=== PATIENT | male | born 1980 | race Two or more races ===

== ENCOUNTER 2025-07-07 08:41 | Emergency (ER) | payer MEDICAID, SELFPAY ==
[2025-07-07 08:41] VITALS: BMI 32.9
--- NOTE | 2025-07-07 08:44 | EKG_ITS ---
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
[2025-07-07 09:04] VITALS: BP 124/85; PULSE 97; RESP 18; TEMP 36.6; O2SAT 96
--- NOTE | 2025-07-07 09:13 | XR_ITS ---
EXAMINATION: PA lateral chest 2 views TECHNIQUE: Upright PA lateral chest 2 views Date and time: July 07, 2025, 0925 hours INDICATIONS: Chest pain beginning 3 days ago. FINDINGS: Normal heart size Lungs are clear. The osseous structures are intact IMPRESSION: No active disease
--- NOTE | 2025-07-07 09:14 | PD.EDRME ---
Rapid Medical Screening Exam [facility] Arrival date/time: 07/07/25 08:41 45-year-old male with no known medical history presents to the emergency room with a chief complaint of left-sided sternal chest pain that radiates down his left arm, weakness, fatigue x 1 week I have greeted and performed a focused initial assessment of this patient. A comprehensive ED assessment and evaluation of the patient, analysis of all test results, and completion of the medical decision making process will be conducted by additional ED providers. Chief Complaint: Chest Pain Vital signs: Vital Signs Temperature 98 F 07/07/25 09:04 Pulse Rate 97 07/07/25 09:04 Respiratory Rate 18 07/07/25 09:04 Blood Pressure 124/85 H 07/07/25 09:04 Pulse Oximetry (%) 96 07/07/25 09:04 Oxygen Delivery Method Room Air 07/07/25 09:04 Vital signs reviewed by provider: Yes Exam: Clear bilateral lung sounds with auscultation Strong and regular rhythm S1 and S2 noted. EKG shows normal sinus rhythm Clinical Impression: STEMI/NSTEMI/chest pain/
[2025-07-07 09:37] LABS: Basophils # (Auto) 0.0 Thou/mm3 (0.0-0.2); Basophils % (Auto) 0 % (0-2.5); Eosinophils # (Auto) 0.1 Thou/mm3 (0.0-0.5); Eosinophils % (Auto) 1 % (0-10); Hematocrit 45.6 % (41.0-53.0); Hemoglobin 16.3 g/dL (13.5-16.0); Immature Granulocytes Auto 0.13 Thou/mm3 (0.00-0.00); Lymphocytes # (Auto) 2.1 Thou/mm3 (1.0-4.8); Lymphocytes % (Auto) 23 % (10-50); Mean Corpuscular HGB Conc 35.7 g/dl (31.0-37.0); Mean Corpuscular Hemoglobin 32.7 pg (25.0-35.0); Mean Corpuscular Volume 91 fL (80-100); Monocytes # (Auto) 0.6 Thou/mm3 (0.0-0.8); Monocytes % (Auto) 7 % (0-12); Neutrophils # (Auto) 6.3 Thou/mm3 (1.8-7.7); Neutrophils % (Auto) 69 % (37-80); Nucleated Red Blood Cell # 0.00 Thou/mm3 (0.00-0.00); Nucleated Red Blood Cell % 0 /100 WBC (0); Platelet Count 281 Thou/mm3 (140-440); RDW Standard Deviation 40.5 fL (35.1-43.9); Red Blood Count 4.99 Miln/mm3 (4.50-5.90); White Blood Count 9.2 Thou/mm3 (3.8-10.6)
[2025-07-07 09:53] LABS: INR 1.0 (0.9-1.3); Partial Thromboplastin Time 27.8 Seconds (22.0-36.0); Prothrombin Time 10.7 Seconds (9.0-12.2)
[2025-07-07 10:01] LABS: B-Type Natriuretic Peptide < 20 pg/mL (0-100)
[2025-07-07 10:02] LABS: Alanine Aminotransferase 65 U/L (10-49); Albumin, Serum 5.3 gm/dL (3.5-5.0); Albumin/Globulin Ratio 2.5 (1.2-2.2); Alkaline Phosphatase 86 U/L (46-116); Anion Gap 12 (7-16); Aspartate Amino Transferase 34 U/L (0-34); BUN/Creatinine Ratio 11 Ratio (12-20); Bilirubin,Total 0.5 mg/dL (0.3-1.2); Blood Urea Nitrogen 9 mg/dL (9-23); Calcium 9.6 mg/dL (8.3-10.6); Calcium (Corrected) 9.6 mg/dL (8.5-10.1); Carbon Dioxide 21.0 mMol/L (20.0-31.0); Chloride 106 mMol/L (98-107); Creatinine (Component) 0.8 mg/dL (0.6-1.3); Estimated Creatinine Clearance 118.8 mL/min (>60); Free T4 (Free Thyroxine) 1.34 ng/dL (0.89-1.76); Globulin 2.1 gm/dL (2.3-3.5); Glucose 143 mg/dL (74-106); LDH (Lactate Dehydrogenase) 187 U/L (120-246); Magnesium 1.8 mg/dL (1.6-2.6); Osmolality,Calculated 278 (275-295); Potassium 3.6 mMol/L (3.4-5.1); Sodium 139 mMol/L (136-145); Thyroid Stimulating Hormone 1.34 uIU/mL (0.55-4.78); Total Protein 7.4 gm/dL (5.7-8.2); Troponin I < 0.002 ng/mL (0.0-0.045); eGFR > 60 See Note
[2025-07-07 10:14] LABS: Collection Type, Urine Clean Catch
[2025-07-07 10:19] LABS: Bilirubin,Urine Negative (Negative); Blood,Urine Negative (Negative); Clarity,Urine Clear (Clear/Hazy); Color,Urine Lt-Yellow (Lt Yel-Yel); Culture Indicated,Urine Not Indicated; Glucose, Urine Negative (Negative); Ketones,Urine 1+ (Negative); Leukocyte Esterase,Urine Negative (Negative); Nitrite,Urine Negative (Negative); PH,Urine 6.0 (5.0-7.0); Protein,Urine Negative (Neg - Trace); RBC,Urine < 1 /hpf (0-3); Specific Gravity,Urine 1.023 (1.001-1.035); Squamous Epithelial Cell,Urine < 1 /hpf (0-5); Urobilinogen,Urine Negative mg/dL (0.0-1.0); WBC,Urine < 1 /hpf (0-5)
[2025-07-07 10:44] LABS: Amphetamine/Methamp Scrn,U Negative (Negative); Barbiturate Screen,Urine Negative (Negative); Benzodiazepines Screen,Urine Negative (Negative); Benzoylecgonine Screen, Ur Negative (Negative); Fentanyl Screen,Urine Negative (Negative); Opiate Screen,Urine Negative (Negative); THC Screen,Urine Positive (Negative)
--- NOTE | 2025-08-15 00:14 | PD.EDADULT ---
ED General RME/HPI General Chief complaint: Chest Pain Stated complaint: CHEST TIGHTNESS WITH L ARM SORENESS X3 DAYS Time Seen by Provider: 07/07/25 12:23 Source: patient Arrival date/time: 07/07/25 08:41 Mode of arrival: ambulatory Limitations: no limitations RME / HPI RME / HPI narrative: hpi 45-year-old male with no known medical history presents to the emergency room by car with chief complaint of left sternal chest pain that is on the left side. Patient states it radiates to his left arm. The patient otherwise has fatigue x 1 week. No specific focal weakness or numbness. The patient states that nothing makes the symptoms worse or better. No associated nausea vomiting or diarrhea. No facial complaints. No difficulty speaking. No shortness of breath. The patient denies recent travel. Exam: Clear bilateral lung sounds with auscultation Strong and regular rhythm S1 and S2 noted. EKG shows normal sinus rhythm Impression: STEMI/NSTEMI/chest pain/ Related Data Home Medications ?Medication ?Instructions ?Recorded ?Confirmed divalproex 250 mg tablet,delayed 250 mg PO TID 10/12/19 02/26/20 release (Depakote) Previous Rx's ?Medication ?Instructions ?Recorded hydrocodone 5 mg-acetaminophen 325 1 tab PO BID PRN pain #4 tabs 01/27/21 mg tablet ibuprofen 800 mg tablet 800 mg PO TID PRN pain #30 tabs 01/27/21 albuterol sulfate 90 mcg/actuation 2 puff inhalation QID #8.5 grams 10/30/21 aerosol inhaler azithromycin 250 mg tablet See Rx Instructions PO .COMPLEX #6 10/30/21 tabs ibuprofen 600 mg tablet 600 mg PO TID PRN pain #30 tabs 05/27/23 pseudoephedrine HCl 30 mg tablet 30 mg PO Q6H PRN nasal congestion 05/27/23 (Suphedrin) #20 tabs loratadine 10 mg tablet 10 mg PO QDAY #30 tabs 07/16/25 mometasone 50 mcg/actuation nasal 1 spray intranasal QDAY #17 grams 07/16/25 spray prednisone 50 mg tablet 50 mg PO QDAY #5 tabs 07/19/25 Allergies Allergy/AdvReac Type Severity Reaction Status Date / Time Sulfa (Sulfonamide Allergy Mild Hives Verified 11/05/25 16:44 Antibiotics) Review of Systems Review of Systems Systems Reviewed: All systems reviewed, normal except as documented Constitutional Constitutional: Reports system reviewed and no additional complaints, except as documented and Denies fever(s) Eyes Eyes: Reports system reviewed and no additional complaints, except as documented ENT Ears, Nose, Mouth, and Throat: Reports system reviewed and no additional complaints, except as documented Respiratory Respiratory: Reports system reviewed and no additional complaints, except as documented and Denies wheezing Gastrointestinal Gastrointestinal: Reports system reviewed and no additional complaints, except as documented, Denies abdominal pain, Denies nausea and Denies vomiting Genitourinary Genitourinary: Reports system reviewed and no additional complaints, except as documented and Denies dysuria Musculoskeletal Musculoskeletal: Reports system reviewed and no additional complaints, except as documented, Denies abnormal gait and Denies arthralgias Integumentary/Breasts Skin/Breast: Reports system reviewed and no additional complaints, except as documented and Denies rash Neurologic Neurologic: Reports system reviewed and no additional complaints, except as documented and Denies abnormal gait Psychiatric Psychiatric: Reports system reviewed and no additional complaints, except as documented Allergic/Immunologic Allergic/Immunologic: Denies wheezing Past Medical History Past Medical History NEUROLOGIC: Positive Seizures CARDIAC: Negative Cardiac Disorders or Congestive Heart Failure RESPIRATORY: Positive Sleep Apnea; Negative Chronic Obstructive Pulmonary Disease (COPD) or Asthma GENITOURINARY: Negative Renal Disease ENDOCRINE: Negative Diabetes Mellitus Type 1 or Diabetes Mellitus Type 2 HEMATOLOGIC: Negative Sickle Cell Disease Social History SMOKING STATUS: Never smoker SUBSTANCE USE: does not use ED Exam General Limitations: Present no limitations General appearance: Present alert and in no apparent distress Head Head exam: Present atraumatic Eye Eye exam: Present normal appearance, PERRL and EOMI ENT ENT exam: Present normal exam, normal oropharynx and mucous membranes moist Neck Neck exam: Present normal inspection, full ROM and trachea midline Chest Chest inspection: Present normal inspection and symmetric chest wall rise Respiratory Respiratory exam: Present normal lung sounds bilaterally Cardiovascular Cardiovascular exam: Present regular rate, normal rhythm and normal heart sounds Abdominal Exam Abdominal exam: Present soft and normal bowel sounds Extremities Exam Extremities exam: Present normal inspection and full ROM Back Exam Back exam: Present normal inspection and full ROM Neurological Exam Neurological exam: Present alert, oriented X3 and CN II-XII intact Psychiatric Psychiatric exam: Present normal affect and normal mood Skin Skin exam: Present warm, dry, intact and normal color Course Quality Measures none Orders Category Date Time Status EKG (ED ONLY) *Do not use* NOW Care 07/07/25 08:44 Completed EKG (ED Only) Stat Exams 07/07/25 08:44 Draft XR chest 2V Stat Exams 07/07/25 09:13 Completed B-Type Natriuretic Peptide Stat Lab 07/07/25 09:21 Completed CBC Stat Lab 07/07/25 09:21 Completed Comprehensive Metabolic Panel Stat Lab 07/07/25 09:21 Completed Drug Screen,Urine Stat Lab 07/07/25 10:05 Completed Free T4 (Free Thyroxine) Stat Lab 07/07/25 09:21 Completed LDH (Lactate Dehydrogenase) Stat Lab 07/07/25 09:21 Completed Magnesium Stat Lab 07/07/25 09:21 Completed Partial Thromboplastin Time Stat Lab 07/07/25 09:21 Completed Prothrombin Time with INR Stat Lab 07/07/25 09:21 Completed TSH [Thyroid Stimulating Hormone] Stat Lab 07/07/25 09:21 Completed Troponin I Stat Lab 07/07/25 09:21 Completed Urinalysis, C/S if Indicated Stat Lab 07/07/25 10:05 Completed levETIRAcetam [Keppra] Med 07/07/25 12:27 Discontinued 250 mg PO X1 ONE Vital Signs Vital signs: Vital Signs Temperature 98 F 07/07/25 09:04 Pulse Rate 97 07/07/25 09:04 Respiratory Rate 18 07/07/25 09:04 Blood Pressure 124/85 H 07/07/25 09:04 Pulse Oximetry (%) 96 07/07/25 09:04 Oxygen Delivery Method Room Air 07/07/25 09:04 Discharge Plan Plan Patient Disposition: HOME (Self Care) Patient condition on transfer: Stable Prescriptions/Referrals Prescriptions/Med Rec: No Action ibuprofen 800 mg tablet 800 mg PO TID PRN (Reason: pain) Qty: 30 0RF hydrocodone-acetaminophen 5-325 mg tablet 1 tab PO BID MDD 10 PRN (Reason: pain) Qty: 4 0RF divalproex [Depakote] 250 mg Tablet,Delayed Release (Dr/Ec) 250 mg PO TID azithromycin 250 mg tablet See Rx Instructions .ROUTE .COMPLEX Qty: 6 0RF Rx Instructions: For 250 mg dose pack: take 500 mg today (day 1), then 250 mg for 4 days (days 2-5) albuterol sulfate 90 mcg/actuation HFA aerosol inhaler 2 puff inhalation QID Qty: 8.5 0RF ibuprofen 600 mg tablet 600 mg PO TID PRN (Reason: pain) Qty: 30 0RF pseudoephedrine HCl [Suphedrin] 30 mg tablet 30 mg PO Q6H PRN (Reason: nasal congestion) Qty: 20 0RF loratadine 10 mg tablet 10 mg PO QDAY Qty: 30 0RF mometasone 50 mcg/actuation spray,non-aerosol 1 spray intranasal QDAY Qty: 17 0RF Rx Instructions: administer into each nostril prednisone 50 mg tablet 50 mg PO QDAY Qty: 5 0RF Referrals: Martínez More MD [Primary Care Provider, Family Practice] - In 1 week Problem List Clinical Impression: Atypical chest pain Patient/Caregiver Discharge Instructions Education Materials: ED Chest Pain, Uncertain Cause Additional Instructions: Return to emergency department for any worsening symptoms or any concerns. Today your labs are reassuring. Your EKG does not show that you had a heart attack, and your chest x-ray does not show yet you have pneumonia. Print Language: Gabonese Stand Alone Forms: [place] Info., Work/School Release, Patient Portal Info Letter MDM Narrative MDM hospital course (for use when minimal MDM required): Patient presents with atypical chest pain. Otherwise heart score is 0. Vitals in the emergency department 124/85. Review of his EKG shows no ST elevation MA. No depressions. Review of his chest x-ray shows no infiltrate, pleural effusion, or cardiomegaly. Radiology interpretation reviewed. Labs reviewed interpreted by me. Patient is stable for discharge. Reevaluation symptoms have been going on for over a week. At this time patient has no risk factors for pulmonary embolism. Return precautions are given and understood. Clinical Information Provided by: patient Medical Records reviewed None Meds/Rx considered, not ordered None Labs/Rad/Tests considered, not ordered None Chronic Illness/Social Conditions which may negatively complicate care or outcome(s)-explain: None or not applicable EKG Interpretation EKG #1: EKG Interpretation: 906. EKG normal sinus. Heart rate 97. RI #120. QTc 399. No ST elevations or depressions. Impression no ST elevation MA. EKG is interpreted by me. Labs Labs: none and interpreted by me Lab(s) Interpretation(s): White count is normal at 9.2. Hemoglobin is stable at 16. Troponin 0.02. BNP is normal at 20. Otherwise electrolytes are normal and LFTs are normal. Imaging Imaging interpretation: none and interpreted by me Imaging Interpretation(s): On no infiltrate, pleural effusion, or cardiomegaly. Medication Administration(s) Medication Administration History Discontinued Medications Levetiracetam (Levetiracetam 250 Mg Tablet) 250 mg PO X1 ONE Stop: 07/07/25 12:28 Last Admin: 07/07/25 12:33 Dose: 250 mg Documented By: MF See HPI. Diagnosis Differential Diagnosis ED Complaint MDM: Viral syndrome, pneumonia, anxiety, non-STEMI. Diagnoses ruled out and/or further discussions: STEMI.
== END 2025-07-07 12:37 | disposition home or self-care (01) ==
PROVIDERS: Nurse Practitioner Family; Emergency Provider Emergency Medicine; PCP Family Medicine
DX: R07.89 Other chest pain (principal)
CPT/HCPCS: 36415; 71046; 80053; 80307; 81001; 83615; 83735; 83880; 84439; 84443; 84484; 85025; 85610; 85730; 93005; 99282; A9270

== ENCOUNTER 2025-07-16 09:01 | Emergency (ER) | payer MEDICAID, SELFPAY ==
[2025-07-16 09:31] VITALS: BP 142/89; PULSE 98; RESP 18; TEMP 36.8; O2SAT 98; BMI 32.9
--- NOTE | 2025-07-16 09:37 | EKG_ITS ---
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
--- NOTE | 2025-07-16 09:37 | XR_ITS ---
EXAMINATION: PA chest single view TECHNIQUE: Upright PA chest single view Date and time: July 16, 2025, 0949 hours, comparison July 07, 2025 INDICATIONS: Chest pain today FINDINGS: Normal heart size Lungs are clear. The osseous structures are intact IMPRESSION: No active disease
--- NOTE | 2025-07-16 09:37 | PD.EDRME ---
Rapid Medical Screening Exam RME Arrival date/time: 07/16/25 09:01 45-year-old male with no known medical history presents to the emergency room with a chief complaint of 8 out of 10 sternal chest pain x 2 days I have greeted and performed a focused initial assessment of this patient. A comprehensive ED assessment and evaluation of the patient, analysis of all test results, and completion of the medical decision making process will be conducted by additional ED providers. Chief Complaint: Chest Pain Time Seen by Provider: 07/16/25 09:30 Vital signs: Vital Signs Temperature 98.2 F 07/16/25 09:31 Pulse Rate 98 07/16/25 09:31 Respiratory Rate 18 07/16/25 09:31 Blood Pressure 142/89 H 07/16/25 09:31 Pulse Oximetry (%) 98 07/16/25 09:31 Oxygen Delivery Method Room Air 07/16/25 09:31 Vital signs reviewed by provider: Yes Exam: Strong and regular rhythm S1 and S2 noted Clear bilateral lung sounds no wheezing or any abnormal breath sounds Clinical Impression: STEMI/NSTEMI/chest pain/costochondritis
[2025-07-16 10:16] LABS: Basophils # (Auto) 0.0 Thou/mm3 (0.0-0.2); Basophils % (Auto) 0 % (0-2.5); Eosinophils # (Auto) 0.0 Thou/mm3 (0.0-0.5); Eosinophils % (Auto) 1 % (0-10); Hematocrit 44.6 % (41.0-53.0); Hemoglobin 15.8 g/dL (13.5-16.0); Immature Granulocytes Auto 0.08 Thou/mm3 (0.00-0.00); Lymphocytes # (Auto) 1.9 Thou/mm3 (1.0-4.8); Lymphocytes % (Auto) 22 % (10-50); Mean Corpuscular HGB Conc 35.4 g/dl (31.0-37.0); Mean Corpuscular Hemoglobin 32.8 pg (25.0-35.0); Mean Corpuscular Volume 93 fL (80-100); Monocytes # (Auto) 0.7 Thou/mm3 (0.0-0.8); Monocytes % (Auto) 8 % (0-12); Neutrophils # (Auto) 5.8 Thou/mm3 (1.8-7.7); Neutrophils % (Auto) 68 % (37-80); Nucleated Red Blood Cell # 0.00 Thou/mm3 (0.00-0.00); Nucleated Red Blood Cell % 0 /100 WBC (0); Platelet Count 275 Thou/mm3 (140-440); RDW Standard Deviation 40.4 fL (35.1-43.9); Red Blood Count 4.81 Miln/mm3 (4.50-5.90); White Blood Count 8.6 Thou/mm3 (3.8-10.6)
[2025-07-16 10:18] LABS: Collection Type, Urine Clean Catch; Squamous Epithelial Cell,Urine 0 /hpf (0-5)
[2025-07-16 10:34] LABS: B-Type Natriuretic Peptide < 20 pg/mL (0-100)
[2025-07-16 10:36] LABS: INR 1.0 (0.9-1.3); Partial Thromboplastin Time 27.4 Seconds (22.0-36.0); Prothrombin Time 10.8 Seconds (9.0-12.2)
[2025-07-16 10:37] LABS: Alanine Aminotransferase 66 U/L (10-49); Albumin, Serum 5.1 gm/dL (3.5-5.0); Albumin/Globulin Ratio 2.3 (1.2-2.2); Alkaline Phosphatase 85 U/L (46-116); Anion Gap 11 (7-16); Aspartate Amino Transferase 40 U/L (0-34); BUN/Creatinine Ratio 9 Ratio (12-20); Bilirubin,Total 0.5 mg/dL (0.3-1.2); Blood Urea Nitrogen 8 mg/dL (9-23); Calcium 9.8 mg/dL (8.3-10.6); Calcium (Corrected) 9.8 mg/dL (8.5-10.1); Carbon Dioxide 23.4 mMol/L (20.0-31.0); Chloride 107 mMol/L (98-107); Creatinine (Component) 0.9 mg/dL (0.6-1.3); Estimated Creatinine Clearance 105.6 mL/min (>60); Globulin 2.2 gm/dL (2.3-3.5); Glucose 125 mg/dL (74-106); Magnesium 2.0 mg/dL (1.6-2.6); Osmolality,Calculated 280 (275-295); Potassium 3.8 mMol/L (3.4-5.1); Sodium 141 mMol/L (136-145); Total Protein 7.3 gm/dL (5.7-8.2); Troponin I < 0.002 ng/mL (0.0-0.045); eGFR > 60 See Note
[2025-07-16 10:41] LABS: Bilirubin,Urine Negative (Negative); Blood,Urine Negative (Negative); Clarity,Urine Clear (Clear/Hazy); Color,Urine Lt-Yellow (Lt Yel-Yel); Culture Indicated,Urine Not Indicated; Glucose, Urine Negative (Negative); Ketones,Urine Trace (Negative); Leukocyte Esterase,Urine Negative (Negative); Nitrite,Urine Negative (Negative); PH,Urine 6.5 (5.0-7.0); Protein,Urine Negative (Neg - Trace); RBC,Urine 1 /hpf (0-3); Specific Gravity,Urine 1.011 (1.001-1.035); Urobilinogen,Urine Negative mg/dL (0.0-1.0); WBC,Urine < 1 /hpf (0-5)
[2025-07-16 10:49] LABS: Amphetamine/Methamp Scrn,U Negative (Negative); Barbiturate Screen,Urine Negative (Negative); Benzodiazepines Screen,Urine Negative (Negative); Benzoylecgonine Screen, Ur Negative (Negative); Fentanyl Screen,Urine Negative (Negative); Opiate Screen,Urine Negative (Negative); THC Screen,Urine Positive (Negative)
--- NOTE | 2025-07-16 11:27 | PD.EDCHEST ---
ED Chest Pain RME/HPI General Chief Complaint: Chest Pain Stated Complaint: CHEST PAIN WITH TIGHTNESS Time Seen by Provider: 07/16/25 09:30 Arrival date/time: 07/16/25 09:01 RME / HPI RME / HPI narrative: 07/16/25 09:01 45-year-old male with no known medical history presents to the emergency room with a chief complaint of 8 out of 10 sternal chest pain x 2 days I have greeted and performed a focused initial assessment of this patient. A comprehensive ED assessment and evaluation of the patient, analysis of all test results, and completion of the medical decision making process will be conducted by additional ED providers. DR. SHAIKH MAIN ED EVALUATION: 45-year-old male with a past medical history of epilepsy on Keppra 500 mg and sleep apnea presents to the Emergency Department for chest pain and dizziness ongoing for the past couple of weeks. The chest pain is located in the mid and right chest, radiating to the right flank and right ribs. He also reports ringing in the ears and a right-sided headache. Additionally, he notes intermittent right jaw pain and mentions he has a wisdom tooth on the right that has been bothering him at times. He denies fevers or chills. No shortness of breath. No nausea, vomiting, or diarrhea. No syncope. He has no known medication allergies. He reports difficulty with CPAP use for his sleep apnea due to insurance issues obtaining filters and a mask, as well as denial of a recent sleep study. He follows with neurologist Dr. Dillon for seizure management. Related Data Home Medications ?Medication ?Instructions ?Recorded ?Confirmed divalproex 250 mg tablet,delayed 250 mg PO TID 10/12/19 02/26/20 release (Depakote) Previous Rx's ?Medication ?Instructions ?Recorded hydrocodone 5 mg-acetaminophen 325 1 tab PO BID PRN pain #4 tabs 01/27/21 mg tablet ibuprofen 800 mg tablet 800 mg PO TID PRN pain #30 tabs 01/27/21 albuterol sulfate 90 mcg/actuation 2 puff inhalation QID #8.5 grams 10/30/21 aerosol inhaler azithromycin 250 mg tablet See Rx Instructions PO .COMPLEX #6 10/30/21 tabs ibuprofen 600 mg tablet 600 mg PO TID PRN pain #30 tabs 05/27/23 pseudoephedrine HCl 30 mg tablet 30 mg PO Q6H PRN nasal congestion 05/27/23 (Suphedrin) #20 tabs loratadine 10 mg tablet 10 mg PO QDAY #30 tabs 07/16/25 mometasone 50 mcg/actuation nasal 1 spray intranasal QDAY #17 grams 07/16/25 spray Allergies Allergy/AdvReac Type Severity Reaction Status Date / Time Sulfa (Sulfonamide Allergy Mild Hives Verified 07/16/25 09:03 Antibiotics) Review of Systems Review of Systems Systems Reviewed: All systems reviewed, normal except as documented Past Medical History Past Medical History NEUROLOGIC: Positive Seizures RESPIRATORY: Positive Sleep Apnea Social History SMOKING STATUS: Never smoker SUBSTANCE USE: does not use ALCOHOL: Never ED Exam Narrative Physical exam: GENERAL APPEARANCE: alert and oriented x 4, well-developed, well-nourished, no acute distress VITALS: All vitals were reviewed and the pulse ox is 98% on room air, which is normal according to my interpretation. HEENT: Normocephalic, atraumatic; bilateral serous effusions noted in tympanic membranes; clear rhinorrhea present; mucous membranes pink and moist NECK: Supple LUNGS: CTABL; no wheezes, no rales, no rhonchi HEART: Regular rate, regular rhythm; normal S1, S2; no murmurs ABDOMEN: non distended; normal BS; soft, no tenderness, no guarding, no rebound; no masses, no organomegaly, no hernia BACK: no CVA tenderness EXTREMITIES: atraumatic; no edema NEUROLOGIC: awake; alert and oriented x4; cranial nerves II-XII grossly intact; no focal sensory or motor deficits PSYCHIATRIC: appropriate mood and affect SKIN: warm, dry, normal color; no rashes Course Quality Measures none Orders Category Date Time Status EKG (ED ONLY) *Do not use* NOW Care 07/16/25 09:37 Completed EKG (ED Only) Stat Exams 07/16/25 09:37 Draft XR chest 2V Stat Exams 07/16/25 09:37 Completed B-Type Natriuretic Peptide Stat Lab 07/16/25 10:03 Completed CBC Stat Lab 07/16/25 10:03 Completed Comprehensive Metabolic Panel Stat Lab 07/16/25 10:03 Completed Drug Screen,Urine Stat Lab 07/16/25 10:00 Completed Magnesium Stat Lab 07/16/25 10:03 Completed Partial Thromboplastin Time Stat Lab 07/16/25 10:03 Completed Prothrombin Time with INR Stat Lab 07/16/25 10:03 Completed Troponin I Stat Lab 07/16/25 10:03 Completed Urinalysis, C/S if Indicated Stat Lab 07/16/25 10:00 Completed lorataDINE [Claritin] Med 07/16/25 11:28 Discontinued 10 mg PO X1 ONE Vital Signs Vital signs: Vital Signs Temperature 98.2 F 07/16/25 09:31 Pulse Rate 98 07/16/25 09:31 Respiratory Rate 18 07/16/25 09:31 Blood Pressure 142/89 H 07/16/25 09:31 Pulse Oximetry (%) 98 07/16/25 09:31 Oxygen Delivery Method Room Air 07/16/25 09:31 Chest Pain MDM Narrative MDM Narrative:: Cori Blackmon am scribing for and in the presence of Dr. Shaikh. Patient data External records reviewed:: [facility] previous records Clinical information provided by:: patient Social determinants that could affect healthcare access:: none Patient has the following chronic illnesses:: epilepsy on Keppra 500 mg and sleep apnea How is presenting disease/condition affected by chronic disease/condition?: exacerbated by Evaluation data The following diagnostics were reviewed and interpreted by me:: lab results, radiology exam(s) and EKG tracing(s) (My interpretation: EKG performed at 0941 hours, sinus rhythm, rate 94, no acute ischemic changes) Lab and/or radiology exams considered but not ordered:: none Interpretation Summary: Procedure(s): XR chest 2V Accession Number(s): [id number] cc: Edvin Lo; Martínez More MD; Jason Browne MD~ EXAMINATION: PA chest single view TECHNIQUE: Upright PA chest single view Date and time: July 16, 2025, 0949 hours, comparison July 07, 2025 INDICATIONS: Chest pain today FINDINGS: Normal heart size Lungs are clear. The osseous structures are intact IMPRESSION: No active disease Dictated By: Jason Browne MD Medications / Prescriptions Medications or Prescriptions considered but not ordered:: none Medication administrations:: Medication Administration History Discontinued Medications Loratadine (Loratadine 10 Mg Tablet) 10 mg PO X1 ONE Stop: 07/16/25 11:29 none Consultations Consultation(s) initiated? (list below): No Diagnosis Chest Pain Differential Diagnosis: other (Eustachian tube dysfunction, referred otalgia from dental infection, and musculoskeletal chest pain.) Most likely diagnosis given after review of the tests above:: Atypical chest pain TIM (obstructive sleep apnea) Allergic rhinitis Admission Indicated Admission indicated?: not indicated Admission Request Was there a request for admission?: No Disposition Plan Disposition Plan: Discharge Discharge Attestation Discharge Attestation: The patient and all family members were given an opportunity to ask questions and understood the discharge instructions. Discharge instructions specifically effects, indications for sooner follow up or return to the emergency department, and the expected course of current diagnosis. Patient condition: Stable Discharge Plan Plan Patient Disposition: HOME (Self Care) Prescriptions/Referrals Prescriptions/Med Rec: New loratadine 10 mg tablet 10 mg PO QDAY Qty: 30 0RF mometasone 50 mcg/actuation spray,non-aerosol 1 spray intranasal QDAY Qty: 17 0RF Rx Instructions: administer into each nostril No Action ibuprofen 800 mg tablet 800 mg PO TID PRN (Reason: pain) Qty: 30 0RF hydrocodone-acetaminophen 5-325 mg tablet 1 tab PO BID MDD 10 PRN (Reason: pain) Qty: 4 0RF divalproex [Depakote] 250 mg Tablet,Delayed Release (Dr/Ec) 250 mg PO TID azithromycin 250 mg tablet See Rx Instructions .ROUTE .COMPLEX Qty: 6 0RF Rx Instructions: For 250 mg dose pack: take 500 mg today (day 1), then 250 mg for 4 days (days 2-5) albuterol sulfate 90 mcg/actuation HFA aerosol inhaler 2 puff inhalation QID Qty: 8.5 0RF ibuprofen 600 mg tablet 600 mg PO TID PRN (Reason: pain) Qty: 30 0RF pseudoephedrine HCl [Suphedrin] 30 mg tablet 30 mg PO Q6H PRN (Reason: nasal congestion) Qty: 20 0RF Referrals: Martínez More MD [Primary Care Provider, Family Practice] - In 1 week Problem List Clinical Impression: Atypical chest pain, TIM (obstructive sleep apnea), Allergic rhinitis Patient/Caregiver Discharge Instructions Education Materials: ED Chest Pain, Uncertain Cause, ED Allergic Rhinitis Print Language: Kazakh Stand Alone Forms: Penny Award Info., Patient Portal Info Letter
== END 2025-07-16 11:54 | disposition home or self-care (01) ==
PROVIDERS: Nurse Practitioner Family; Emergency Provider Emergency Medicine; PCP Family Medicine
DX: R07.89 Other chest pain (principal); G40.909 Epilepsy, unspecified, not intractable, without status epilepticus; G47.33 Obstructive sleep apnea (adult) (pediatric); Z59.71 Insufficient health insurance coverage; H93.13 Tinnitus, bilateral; J30.9 Allergic rhinitis, unspecified; Z79.51 Long term (current) use of inhaled steroids
CPT/HCPCS: 36415; 71046; 80053; 80307; 81001; 83735; 83880; 84484; 85025; 85610; 85730; 93005; 99283; A9270

== ENCOUNTER 2025-07-19 16:41 | Emergency (ER) | payer MEDICAID, SELFPAY ==
[2025-07-19 17:27] VITALS: BP 143/89; PULSE 95; RESP 18; TEMP 36.7; O2SAT 99; BMI 31.6
--- NOTE | 2025-07-19 17:27 | XR_ITS ---
Examination: CT brain head without contrast. 2-D sagittal coronal reconstructions Date and time of exam: July 19, 2025, 1820 hours INDICATIONS: Onset dizziness lightheadedness today CTDI: vol (mGy): 49.9 DLP: (mGycm): 933 Technique: Multiple CT axial sections of the brain have been obtained, 5 mm slice thickness. Contrast has not been administered. 2-D sagittal, coronal reconstructions have been obtained Low dose protocols were performed. One or more of the following dose reduction techniques were used; automated exposure control, adjustment of the mA and/or KV according to patient size, use of iterative reconstruction technique. Findings: No significant ventricular enlargement. Intra-axial or extra-axial hemorrhage density is not seen. No mass effect or midline shift Basal cisterns are not remarkable. Fourth ventricle is midline. Cranial vault intact. Impression: Negative for acute hemorrhage, mass effect or midline shift Advise clinical correlation and follow-up accordingly
--- NOTE | 2025-07-19 17:27 | EKG_ITS ---
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
--- NOTE | 2025-07-19 17:27 | XR_ITS ---
CLINICAL INDICATION: Chest discomfort, shortness of breath and headaches for 3 weeks intermittently TECHNIQUE: XR chest 1V COMPARISON: Chest radiographs 07/16/2025 FINDINGS: The cardiomediastinal silhouette is within normal limits. No airspace opacities suggestive of pneumonia. No mass detected. No pleural effusion or pneumothorax. Degenerative changes of the skeletal structures. No apparent acute osseous abnormality. IMPRESSION: No radiographic evidence for acute cardiopulmonary abnormality. No significant interval change since the comparison study. - This report was generated utilizing speech recognition software. -
--- NOTE | 2025-07-19 17:31 | EDNOTE_ITS ---
ED Anxiety RME/HPI General Chief Complaint: Anxiety Stated Complaint: FEELS LIKE HE IS HAVING A SEIZURE, HX OF EPILEPSY Time Seen by Provider: 07/19/25 17:23 Arrival date/time: 07/19/25 16:41 45-year-old male patient with significant history of seizure disorder currently taking Keppra with good compliance, came in for evaluation regarding multiple complaints. Patient's been having dizziness, nasal congestion, chest discomfort, chest congestion, has been ongoing for the last few days. Today patient noted worsening of symptoms. Patient felt like he is having regarding a seizure. Patient denies any fever. Denies any cough denies any other complaint. Denies any other complaints. Related Data Home Medications ?Medication ?Instructions ?Recorded ?Confirmed divalproex 250 mg tablet,delayed 250 mg PO TID 0 02/26/20 release (Depakote) Previous Rx's ?Medication ?Instructions ?Recorded hydrocodone 5 mg-acetaminophen 325 1 tab PO BID PRN pa in #4 tabs 01/27/21 mg tablet ibuprofen 800 mg tablet 800 mg PO TID PRN pain #30 t abs 01/27/21 albuterol sulfate 90 mcg/actuation 2 puff inhalation Q ID #8.5 grams 10/30/21 aerosol inhaler azithromycin 250 mg tablet See Rx Instructions PO .COM PLEX #6 10/30/21 tabs ibuprofen 600 mg tablet 600 mg PO TID PRN pain #30 t abs 05/27/23 pseudoephedrine HCl 30 mg tablet 30 mg PO Q6H PRN nasa l congestion 05/27/23 (Suphedrin) #20 tabs loratadine 10 mg tablet 10 mg PO QDAY #30 tabs 07/16 mometasone 50 mcg/actuation nasal 1 spray intranasal Q DAY #17 grams 07/16/25 spray prednisone 50 mg tablet 50 mg PO QDAY #5 tabs Allergies Allergy/AdvReac Type Severity Reaction Status Date / Time Sulfa (Sulfonamide Allergy Mild Hives Verified 07/19/25 16:44 Antibiotics) Review of Systems Review of Systems Narrative Review of Systems: Review of system reviewed and within normal limits except mentioned in HPI ED Exam Narrative Physical exam: VITAL SIGNS: Reviewed. GENERAL APPEARANCE: Alert and interactive, follows commands, no acute distress, HEAD AND FACE: Non-traumatic. ENT: PERRL, pink conjunctivitis, eyelid no trauma, Mucous membrane moist. NECK: Supple, nontender, no nuchal rigidity. CHEST: No tenderness, no crepitus, no paradoxical movement, no retractions. LUNGS: Clear, well ventilated, symmetric, no rales, no wheezing, no ronchi, no stridor, good breath sounds bilaterally. HEART: Regular rate, regular rhythm, no murmur, no gallops. ABDOMEN: Soft, positive bowel sounds, nondistended, no guarding, nontender, no rebound, no masses, RECTAL: Deferred. GENITAL: Deferred. NEUROLOGICAL: Gross motor function intact sensory function intact, Appropriate for age. MUSCULOSKELETAL: low back nontender, full range of motion. EXTREMITIES: Nontender, full range of motion. SKIN: Color pink, dry, no rash, no lacerations, no abrasions, no contusions. LYMPHATICS: Deferred. Course Quality Measures none Orders Category Date Time Status EKG (ED ONLY) *Do not use* NOW Care 07/19/25 17:[address] head/brain wo con Stat Exams 07/19/25 17:27 Ordered EKG (ED Only) Stat Exams 07/19/25 17:27 Ordered XR chest 1V Stat Exams 07/19/25 17:27 Ordered B-Type Natriuretic Peptide Stat Lab 07/19/25 17:27 Ordered CBC Stat Lab 07/19/25 17:27 Ordered Comprehensive Metabolic Panel Stat Lab 07/19/25 17:27 Ordered Partial Thromboplastin Time Stat Lab 07/19/25 17:27 Ordered Troponin I Stat Lab 07/19/25 17:27 Ordered Urinalysis, C/S if Indicated Stat Lab 07/19/25 17:27 Ordered DiphenhydrAMINE [Benadryl] Med 07/19/25 17:31 Once 50 mg PO X1 ONE LORazepam [Ativan] Med 07/19/25 17:31 Once 0.5 mg PO X1 ONE Ringers Lactated 1000 ml [Lactated Ringers] 1,000 ml Med 07/19/25 17:27 Ordered IV 999 mls/hr Vital Signs Vital signs: Vital Signs Temperature 98.0 F 07/19/25 17:27 Pulse Rate 95 07/19/25 17:27 Respiratory Rate 18 07/19/25 17:27 Blood Pressure 143/89 H 07/19/25 17:27 Pulse Oximetry (%) 99 07/19/25 17:27 Oxygen Delivery Method Room Air 07/19/25 17:27 Anxiety [facility] Narrative [facility] Narrative: 45-year-old male patient with significant history of seizure disorder currently taking Keppra with good compliance, came in for evaluation regarding multiple complaints. Patient's been having dizziness, nasal congestion, chest discomfort, chest congestion, has been ongoing for the last few days. Today patient noted worsening of symptoms. Patient felt like he is having regarding a seizure. Patient denies any fever. Denies any cough denies any other complaint. Denies any other complaints. Patient reports workup today all came back unremarkable including CT scan of the head which came back unremarkable. I personally reviewed and interpreted the chest x-ray of this patient. There is no acute abnormalities found, no infiltrates no pneumothorax no hemothorax normal chest x-ray. Review of other structures was without significant abnormal findings also. I additionally reviewed the radiologist report and agree with the interpretation. Patient was given Benadryl and Ativan with significant proving symptoms. Stable for charged home Patient data External records reviewed:: None Clinical information provided by:: patient Social determinants that could affect healthcare access:: none Patient has the following chronic illnesses:: History of seizure How is presenting disease/condition affected by chronic disease/condition?: exacerbated by Evaluation data The following diagnostics were reviewed and interpreted by me:: lab results and radiology exam(s) Lab and/or radiology exams considered but not ordered:: None Interpretation Summary: See results [facility] Medications / Prescriptions Medications or Prescriptions considered but not ordered:: None Medication administrations:: Medication Administration History Lactated Ringer's (Lactated Ringers) 1,000 mls @ 999 mls/hr IV .Q1H1M ONE Stop: 07/19/25 18:27 Consultations Consultation(s) initiated? (list below): No Diagnosis Differential diagnosis anxiety: acute anxiety and other (Congestion nasal, headache, allergic rhinitis) Most likely diagnosis given after review of the tests above:: Allergic rhinitis Admission Indicated Admission indicated?: not indicated Admission Request Was there a request for admission?: No Disposition Plan Disposition Plan: Discharge Discharge Attestation Discharge Attestation: The patient and all family members were given an opportunity to ask questions and understood the discharge instructions. Discharge instructions specifically effects, indications for sooner follow up or return to the emergency department, and the expected course of current diagnosis. Patient condition: Stable Discharge Plan Plan Patient Disposition: HOME (Self Care) Discharge Disposition comment: Stable Prescriptions/Referrals Prescriptions/Med Rec: New prednisone 50 mg tablet 50 mg PO QDAY Qty: 5 0RF No Action ibuprofen 800 mg tablet 800 mg PO TID PRN (Reason: pain) Qty: 30 0RF hydrocodone-acetaminophen 5-325 mg tablet 1 tab PO BID MDD 10 PRN (Reason: pain) Qty: 4 0RF divalproex [Depakote] 250 mg Tablet,Delayed Release (Dr/Ec) 250 mg PO TID azithromycin 250 mg tablet See Rx Instructions .ROUTE .COMPLEX Qty: 6 0RF Rx Instructions: For 250 mg dose pack: take 500 mg today (day 1), then 250 mg for 4 days (days 2-5) albuterol sulfate 90 mcg/actuation HFA aerosol inhaler 2 puff inhalation QID Qty: 8.5 0RF ibuprofen 600 mg tablet 600 mg PO TID PRN (Reason: pain) Qty: 30 0RF pseudoephedrine HCl [Suphedrin] 30 mg tablet 30 mg PO Q6H PRN (Reason: nasal congestion) Qty: 20 0RF loratadine 10 mg tablet 10 mg PO QDAY Qty: 30 0RF mometasone 50 mcg/actuation spray,non-aerosol 1 spray intranasal QDAY Qty: 17 0RF Rx Instructions: administer into each nostril Referrals: No Primary/Family,Physician [Primary Care Provider] - In 1 week Problem List Clinical Impression: Allergic rhinitis Patient/Caregiver Discharge Instructions Discharge Activity: activity as tolerated Education Materials: Allergy Overview Additional Instructions: Thank you for the opportunity for serving you today. You are stable for discha rged . You are advised to: Follow-up with your PCP in 1 to 2 days Return to ED for worsening of symptoms Increase oral fluids Take medication as prescribed Print Language: Polish Stand Alone Forms: Penny Award Info., Patient Portal Info Letter
[2025-07-19 17:46] LABS: Basophils # (Auto) 0.0 Thou/mm3 (0.0-0.2); Basophils % (Auto) 1 % (0-2.5); Eosinophils # (Auto) 0.1 Thou/mm3 (0.0-0.5); Eosinophils % (Auto) 1 % (0-10); Hematocrit 43.5 % (41.0-53.0); Hemoglobin 15.4 g/dL (13.5-16.0); Immature Granulocytes Auto 0.11 Thou/mm3 (0.00-0.00); Lymphocytes # (Auto) 2.9 Thou/mm3 (1.0-4.8); Lymphocytes % (Auto) 34 % (10-50); Mean Corpuscular HGB Conc 35.4 g/dl (31.0-37.0); Mean Corpuscular Hemoglobin 32.6 pg (25.0-35.0); Mean Corpuscular Volume 92 fL (80-100); Monocytes # (Auto) 0.9 Thou/mm3 (0.0-0.8); Monocytes % (Auto) 10 % (0-12); Neutrophils # (Auto) 4.5 Thou/mm3 (1.8-7.7); Neutrophils % (Auto) 53 % (37-80); Nucleated Red Blood Cell # 0.00 Thou/mm3 (0.00-0.00); Nucleated Red Blood Cell % 0 /100 WBC (0); Platelet Count 269 Thou/mm3 (140-440); RDW Standard Deviation 40.0 fL (35.1-43.9); Red Blood Count 4.72 Miln/mm3 (4.50-5.90); White Blood Count 8.4 Thou/mm3 (3.8-10.6)
[2025-07-19 18:02] LABS: Alanine Aminotransferase 53 U/L (10-49); Albumin, Serum 5.1 gm/dL (3.5-5.0); Albumin/Globulin Ratio 2.7 (1.2-2.2); Alkaline Phosphatase 81 U/L (46-116); Anion Gap 10 (7-16); Aspartate Amino Transferase 26 U/L (0-34); BUN/Creatinine Ratio 9 Ratio (12-20); Bilirubin,Total 0.3 mg/dL (0.3-1.2); Blood Urea Nitrogen 9 mg/dL (9-23); Calcium 9.8 mg/dL (8.3-10.6); Calcium (Corrected) 9.8 mg/dL (8.5-10.1); Carbon Dioxide 24.4 mMol/L (20.0-31.0); Chloride 106 mMol/L (98-107); Creatinine (Component) 1.0 mg/dL (0.6-1.3); Estimated Creatinine Clearance 93.2 mL/min (>60); Globulin 1.9 gm/dL (2.3-3.5); Glucose 109 mg/dL (74-106); Osmolality,Calculated 279 (275-295); Partial Thromboplastin Time 27.0 Seconds (22.0-36.0); Potassium 4.1 mMol/L (3.4-5.1); Sodium 140 mMol/L (136-145); Total Protein 7.0 gm/dL (5.7-8.2); Troponin I < 0.002 ng/mL (0.0-0.045); eGFR > 60 See Note
[2025-07-19 18:09] LABS: B-Type Natriuretic Peptide < 20 pg/mL (0-100)
[2025-07-19 19:00] LABS: Collection Type, Urine Clean Catch; Squamous Epithelial Cell,Urine 0 /hpf (0-5)
[2025-07-19 19:21] LABS: Bilirubin,Urine Negative (Negative); Blood,Urine Negative (Negative); Clarity,Urine Clear (Clear/Hazy); Color,Urine Colorless (Lt Yel-Yel); Culture Indicated,Urine Not Indicated; Glucose, Urine Negative (Negative); Ketones,Urine Negative (Negative); Leukocyte Esterase,Urine Negative (Negative); Nitrite,Urine Negative (Negative); PH,Urine 6.0 (5.0-7.0); Protein,Urine Negative (Neg - Trace); RBC,Urine 1 /hpf (0-3); Specific Gravity,Urine 1.011 (1.001-1.035); Urobilinogen,Urine Negative mg/dL (0.0-1.0); WBC,Urine < 1 /hpf (0-5)
[2025-07-19 20:22] VITALS: RESP 18
== END 2025-07-19 20:23 | disposition home or self-care (01) ==
PROVIDERS: Nurse Practitioner Family; Emergency Provider Nurse Practitioner Primary Care
DX: F41.9 Anxiety disorder, unspecified (principal); G40.909 Epilepsy, unspecified, not intractable, without status epilepticus; J30.9 Allergic rhinitis, unspecified
CPT/HCPCS: 36415; 70450; 71045; 80053; 81001; 83880; 84484; 85025; 85730; 93005; 99283; A9270